=== PATIENT | female | born 1985 ===

== ENCOUNTER 2018-08-24 22:47 | Emergency (ER) | payer MEDICAID ==
--- NOTE | 2018-08-24 23:22 | ED PDOC ---
Arrival/HPI - General Chief Complaint: Substance Abuse Historian: Patient, EMS, Police - History of Present Illness Narrative History of Present Illness (Text): 08/24/18 23:19 33 year old female, whose past medical history includes poly-substance abuse, p resents to the emergency department by EMS for aggressive behavior. EMS informs patient was found on the street by [employer]. [employer] state patient admitted to taking PCP tonight and was being aggressive towards them. EMS state patient adamantly refused to come to the hospital. Patient denies any fevers, chills, headache, dizziness, chest pain, shortness of breath, dyspnea on exertion, cough, abdominal pain, nausea, vomiting, diarrhea, back pain, neck pain, or any other complaint. Time/Duration: Prior to Arrival Symptom Onset: Gradual Symptom Course: Unchanged Activities at Onset: Light Context: Street Past Medical History - Provider Review Nursing Documentation Reviewed: Yes - Psychiatric Hx Substance Use: Yes (PCP) Family/Social History - Physician Review Nursing Documentation Reviewed: Yes Family/Social History: No Known Family HX Smoking Status: Light Smoker < 10 Cigarettes Daily Hx Alcohol Use: Yes Frequency of alcohol use: Socially Hx Substance Use: Yes (PCP) Allergies/Home Meds Allergies/Adverse Reactions: Allergies cortisone Allergy (Verified 08/24/18 22:55) ANAPHYLAXIS Penicillins Allergy (Verified 08/24/18 22:55) ANAPHYLAXIS Review of Systems - Physician Review All systems were reviewed & negative as marked: Yes - Review of Systems Constitutional: absent: Fevers, Night Sweats Respiratory: absent: SOB, Cough Cardiovascular: absent: Chest Pain Gastrointestinal: absent: Abdominal Pain, Diarrhea, Nausea, Vomiting Musculoskeletal: absent: Back Pain, Neck Pain Neurological: absent: Headache, Dizziness Psychiatric: Other (Agitation) Physical Exam Vital Signs Reviewed: Yes Vital Signs Temp Pulse Resp BP Pulse Ox 08/24/18 22:55 97.7 F 65 18 121/61 99 Temperature: Afebrile Blood Pressure: Normal Pulse: Regular Respiratory Rate: Normal Appearance: Positive for: Well-Appearing, Non-Toxic, Comfortable Pain Distress: None Mental Status: Positive for: Alert and Oriented X 3, Agitated - Systems Exam Head: Present: Atraumatic, Normocephalic Pupils: Present: PERRL Extroacular Muscles: Present: EOMI Conjunctiva: Present: Normal Mouth: Present: Moist Mucous Membranes Neck: Present: Normal Range of Motion Respiratory/Chest: Present: Clear to Auscultation, Good Air Exchange. No: Respiratory Distress, Accessory Muscle Use Cardiovascular: Present: Regular Rate and Rhythm, Normal S1, S2. No: Murmurs Abdomen: No: Tenderness, Distention, Peritoneal Signs Back: Present: Normal Inspection Upper Extremity: Present: Normal Inspection. No: Cyanosis, Edema Lower Extremity: Present: Normal Inspection. No: Edema Neurological: Present: GCS=15, CN II-XII Intact, Speech Normal Skin: Present: Warm, Dry, Normal Color. No: Rashes Psychiatric: Present: Alert, Oriented x 3, Normal Insight, Normal Concentration, Agitated Medical Decision Making ED Course and Treatment: 08/24/18 23:25 Impression: 33 year old female presents with substance use and aggression. Plan: -- Serum alcohol -- Glucose POC -- Urinalysis -- POC -- Reassess and disposition Prior Visits: Notes and results from previous visits were reviewed. Progress Notes: 08/24/18 23:27 Patient was noted to become more belligerent at bedside, yelling that she needs to catch a flight. [place] [employer] is also at bedside. Ativan and benadryl ordered. Restraints placed. 08/25/18 00:39 Patient noted to be agitated constantly repeating that she "has a flight to catch". Urine pending. 08/25/18 01:21 Patient is ambulatory, alert and oriented x3. Patient has steady gait throughout the Emergency room. Patient will be discharged. - Lab Interpretations Lab Results: Lab Results 08/25/18 00:03: Alcohol, Quantitative < 10 I have reviewed the lab results: Yes - Scribe Statement The provider has reviewed the documentation as recorded by the Ruma Morgan Provider Scribe Attestation: All medical record entries made by the Scribe were at my direction and personally dictated by me. I have reviewed the chart and agree that the record accurately reflects my personal performance of the history, physical exam, medical decision making, and the department course for this patient. I have also personally directed, reviewed, and agree with the discharge instructions and disposition. Disposition/Present on Arrival - Present on Arrival Any Indicators Present on Arrival: No History of DVT/PE: No History of Uncontrolled Diabetes: No Urinary Catheter: No History of Decub. Ulcer: No History Surgical Site Infection Following: None - Disposition Have Diagnosis and Disposition been Completed?: Yes Diagnosis: PCP (phencyclidine) abuse Disposition: HOME/ ROUTINE Disposition Time: :29 Patient Plan: Discharge Patient Problems: Current Active Problems Problem Status Onset PCP (phencyclidine) abuse Acute Condition: IMPROVED Discharge Instructions (ExitCare): Drug Abuse and Drug Addiction (DC) Print Language: ARGENTINE Additional Instructions: All medical record entries made by the Scribe were at my direction and personally dictated by me. I have reviewed the chart and agree that the record accurately reflects my personal performance of the history, physical exam, medical decision making, and the department course for this patient. I have also personally directed, reviewed, and agree with the discharge instructions and disposition. Please follow up in clinic in 1 week Referrals: Tish Senior MD [Primary Care Provider] - Follow up with primary Forms: [employer] ([place])
[2018-08-24] MEDS ORDERED: DiphenhydrAMINE 50 mg/ml Inj IM STA (23:24)
[2018-08-24] MEDS ORDERED: DiphenhydrAMINE 50 mg/ml Inj ONE (23:30)
[2018-08-25 00:51] LABS: URINE BILIRUBIN NEGATIVE (NEGATIVE); URINE BLOOD NEGATIVE (NEGATIVE); URINE GLUCOSE (UA) NEGATIVE (NEGATIVE); URINE LEUKOCYTE ESTERASE NEGATIVE Leu/uL (NEGATIVE); URINE PROTEIN NEGATIVE mg/dL (<30 mg/dL); URINE UROBILINOGEN 0.2 E.U./dL (<1 E.U./dL)
[2018-08-25 00:54] LABS: URINE APPEARANCE CLEAR (CLEAR); URINE COLOR YELLOW (YELLOW)
[2018-08-25 00:57] VITALS: BP 121/90; PULSE 71; RESP 17; O2SAT 100
[2018-08-25 01:00] VITALS: TEMP 98.2
[2018-08-25 01:26] LABS: BARBITURATES, UR NEGATIVE (NEGATIVE); BENZODIAZEPINES, UR NEGATIVE (NEGATIVE); OPIATES, UR NEGATIVE (NEGATIVE); PHENCYCLIDINE, UR POSITIVE (NEGATIVE)
== END 2018-08-25 01:48 | disposition home or self-care (01) ==
LOC: MERGE 22:47 → ED 22:47
DX: F16.10 Hallucinogen abuse, uncomplicated (principal)
CPT/HCPCS: 80320; 80324; 80345; 80346; 80349; 80353; 80358; 80361; 81003; 81025; 83992; 96372; 99283; J1200; J2060